=== PATIENT | female | born 1995 | race Caucasian/White ===

== ENCOUNTER 2017-04-11 06:51 | Emergency (ER) | payer OTHER ==
[2017-04-11] MEDS: ONDANSETRON 4 MG INJ IV (07:21)
[2017-04-11] MEDS: SOD CHLORIDE 0.9% 1,000 ML IV (07:21)
[2017-04-11] MEDS: FAMOTIDINE 20 MG INJ IV (07:21)
[2017-04-11 07:42] LABS: ADD MAN DIFF? NO
[2017-04-11 07:46] LABS: ADD UMIC YES; UR ASCORBIC ACID NEGATIVE (NEGATIVE); UR BACTERIA FEW /HPF (NONE SEEN); UR BILIRUBIN (Dip) NEGATIVE (NEGATIVE); UR BLOOD (Dip) 2+ mg/dL (NEGATIVE); UR CLARITY SLIGHTLY CLOUDY (CLEAR); UR COLOR YELLOW (YELLOW); UR GLUCOSE (Dip) NEGATIVE (NEGATIVE); UR KETONES (Dip) 2+ mg/dL (NEGATIVE); UR LEUKOCYTE ESTERASE (Dip) 1+ Leu/ul (NEGATIVE); UR MUCUS FEW /HPF (NONE SEEN); UR NITRITE (Dip) NEGATIVE (NEGATIVE); UR RBC 6 /HPF (0-5); UR SPECIFIC GRAVITY (Dip) 1.017 (1.003-1.030); UR SQUAMOUS EPITHELIAL CELL FEW /HPF (FEW); UR TOTAL PROTEIN (Dip) NEGATIVE (NEGATIVE); UR UROBILINOGEN (Dip) NEGATIVE (NEGATIVE); UR WBC 12 /HPF (0-5)
[2017-04-11 07:50] LABS: WHITE BLOOD COUNT 7.2 10^3/ul (4.8-10.8)
[2017-04-11 07:50] LABS: BASOPHILS % 0.1 % (0.0-2.0); EOSINOPHILS # 0.1 10^3/ul (0.0-0.5); HEMOGLOBIN 14.1 g/dl (12.0-16.0); LYMPHOCYTES # 0.7 10^3/ul (0.8-2.9); LYMPHOCYTES % 9.5 % (15.0-51.0); MEAN CORPUSCULAR HGB CONC 34.4 g/dl (32.0-37.0); MEAN CORPUSCULAR VOLUME 90.1 fl (82.0-101.0); MEAN PLATELET VOLUME 11.2 fl (7.4-10.4); MONOCYTE # 0.6 10^3/ul (0.3-0.9); MONOCYTES % 8.5 % (0.0-11.0); NEUTROPHIL # 5.7 10^3/ul (1.6-7.5); NEUTROPHILS % 80.3 % (39.0-77.0); PLATELET COUNT 183 10^3/UL (140-415); RED BLOOD COUNT 4.55 10^6/ul (4.20-5.40); RED CELL DISTRIBUTION WIDTH 12.9 % (11.5-14.5)
[2017-04-11 08:17] LABS: ALANINE AMINOTRANSFERASE 35 IU/L (13-69); ALBUMIN 4.4 g/dl (3.3-4.9); ALBUMIN/GLOBULIN RATIO 1.51; ALKALINE PHOSPHATASE 65 IU/L (42-121); ANION GAP 19 (8-16); ASPARTATE AMINO TRANSFERASE 26 IU/L (15-46); BILIRUBIN,INDIRECT 0.3 mg/dl (0-1.1); BILIRUBIN,TOTAL 0.3 mg/dl (0.2-1.3); BLOOD UREA NITROGEN 12 mg/dl (7-20); CALCIUM 8.6 mg/dl (8.4-10.2); CARBON DIOXIDE 27 mmol/L (21-31); CHLORIDE 101 mmol/L (97-110); CREATININE 0.58 mg/dl (0.44-1.00); GLUCOSE 103 mg/dl (70-220); LIPASE 134 U/L (23-300); POTASSIUM 4.5 mmol/L (3.5-5.1); SODIUM 142 mmol/L (135-144); TOTAL PROTEIN 7.3 g/dl (6.1-8.1)
[2017-04-11] MEDS: CEFTRIAXONE 1 GM/50 ML (PMX) 50 ML IVPB (08:59)
== END 2017-04-11 09:36 | disposition home or self-care (01) ==
LOC: FTE 06:51
DX: N39.0 Urinary tract infection, site not specified (principal)
CPT/HCPCS: 36415; 80053; 81001; 83690; 85025; 96374; 96375; 99284-25